=== PATIENT | male | born 1970 | race Caucasian/White ===

== ENCOUNTER 2017-11-21 06:00 | Day surgery (SDC) | payer OTHER ==
[~2017-11-21 06:00] MED LIST: ADVIL100 MG PO; IMODIUM A-D2 MG PO
== END 2017-11-21 13:05 | disposition home or self-care (01) ==
LOC: CIR.AMB 06:00
DX: C20 Malignant neoplasm of rectum (principal); D50.0 Iron deficiency anemia secondary to blood loss (chronic)
CPT/HCPCS: 36561; C1751